=== PATIENT | female | born 1995 | race Two or more races ===

== ENCOUNTER 2017-10-02 20:05 | Emergency (ER) | payer MEDICAID ==
[~2017-10-02] VITALS: Ht 162.6 cm; Wt 60.2 kg
[~2017-10-02 20:05] MED LIST: CIPR-230 PO; DICY10CA88 PO; DOXY-8 PO; HYDR1TAB PO; MEDR5TAB PO; NAPR-706 PO; NITR100C6 PO; ONDA8TAB9 PO; OXYC5CAP19 PO; PHEN-873 PO; ZOF4T PO
[2017-10-02 20:16] VITALS: BP 108/62
[2017-10-02 21:28] LABS: URINE HCG NEGATIVE (NEG)
[2017-10-02 21:31] LABS: CLARITY,URINE SLIGHTLY CLOUDY (Clear); COLOR,URINE YELLOW (Yellow); GLUCOSE, URINE NEGATIVE (Neg); KETONES,URINE NEGATIVE (Neg); LEUKOCYTE ESTERASE ,URINE NEGATIVE (Neg); NITRITES, URINE NEGATIVE (Neg); OCCULT BLOOD,URINE NEGATIVE (Neg); PH,URINE 5.5 (4.8-8.0); PROTEIN,URINE NEGATIVE (Neg); UROBILINOGEN,URINE 0.2 E.U/dL (0.2-1.0)
[2017-10-02 21:37] LABS: UA COLLECTION TYPE CLN CATCH MIDSTREAM
[2017-10-02 21:46] LABS: BACTERIA,URINE 1+ /HPF (Neg); MUCUS STRANDS MANY /LPF (Neg); RBC,URINE NONE SEEN /HPF (0-2); SQUAMOUS EPITHELIAL CELL,UR MANY /LPF (FEW); WBC,URINE 0-4 /HPF (0-4)
[2017-10-02] MEDS ORDERED: CEPH500C2 PO (22:40)
== END 2017-10-02 23:10 | disposition home or self-care (01) ==
LOC: ER 20:07
DX: L02.511 Cutaneous abscess of right hand (principal); S61.211A Laceration without foreign body of left index finger without damage to nail, initial encounter; F12.10 Cannabis abuse, uncomplicated; Z79.899 Other long term (current) drug therapy; W22.8XXA Striking against or struck by other objects, initial encounter; Y93.89 Activity, other specified; Y92.89 Other specified places as the place of occurrence of the external cause; Y99.8 Other external cause status
CPT/HCPCS: 11740; 81001; 81025; 99284; A6449